=== PATIENT | female | born 1935 | race African-American/Black ===

== ENCOUNTER → 2017-11-08 | Outpatient (CLI) | payer MEDICARE ==
--- NOTE | 2017-11-08 10:55 | Diagnostic Imaging Report ---
Ultrasound-guided parotid biopsy 11/08/2017 Pre-Procedure Diagnosis: Left parotid nodule Post-procedure Diagnosis:Left parotid nodule Cemetery Keeper: Layne Thurman Industrial Maintenance Manager: None Sedation: None. 1% lidocaine local anesthesia. Estimate blood loss: <5 mL Blood administered: None Complications: None Implants/Grafts: None Specimen: 25-gauge needle biopsy x 6 Procedure: Informed consent was obtained and the patient positioned supine in the ultrasound suite. A timeout was performed, followed by preliminary ultrasound of the left parotid. The face was prepped and draped in standard sterile fashion. Using real-time ultrasound guidance a 25-gauge needle was advanced into the left parotid nodule of interest. An image was stored in the electronic medical record. The sample was submitted to pathology for adequacy review. The procedure was repeated an additional 5 times, using identical technique with image capture for the medical record. At the end of the procedure a sterile dressing was applied. Findings: 0.7 cm left parotid nodule. Impression: Successful ultrasound-guided left parotid nodule needle biopsy. This report was generated with voice-recognition technology. Errors in retail department reset can occur. Please interpret accordingly and contact a radiologist if there are any questions regarding the report. Signed by: Dr. Amilcar Thurman M.D. on 11/08/2017 10:51 AM
--- NOTE | 2017-11-08 10:59 | Diagnostic Imaging Report ---
Left parotid ultrasound, 11/08/2017 Clinical history: Left parotid nodule on physical exam. Comparison: None Technique: Grayscale and color Doppler ultrasound left parotid gland Findings: Left parotid demonstrates a grossly homogenous echotexture. There are multiple small anechoic nodules throughout the gland (at least 4) with well-demarcated, smooth margins. The largest measures 0.7 x 0.6 x 0.9 cm, with some questionable internal echogenic debris. All nodules are nonvascular. No microcalcification. Impression: 0.7 x 0.6 x 0.9 cm hypoechoic left parotid nodule. Primary differential considerations include sialocele and Warthin tumor. This report was generated with voice-recognition technology. Errors in geotechnical laboratory technician can occur. Please interpret accordingly and contact a radiologist if there are any questions regarding the report. Signed by: Dr. Amilcar Thurman M.D. on 11/08/2017 10:55 AM
== END ==
LOC: US 07:52
PROVIDERS: ATTEND Otolaryngology
DX: K11.9 Disease of salivary gland, unspecified (principal)
CPT/HCPCS: 10022; 76536; 76942; 88112; 88172; 88173; 88305